=== PATIENT | male | born 1985 | race African-American/Black ===

== ENCOUNTER 2017-08-31 22:48 | Emergency (ER) | payer SELFPAY ==
[~2017-08-31] VITALS: Ht 182.9 cm; Wt 81.8 kg
[2017-08-31 23:43] VITALS: BP 127/80
[2017-09-01] MEDS ORDERED: IPRATROPIUM BROM 0.5 MG/2.5ML INH SOL NEB ONE (00:15)
[2017-09-01] MEDS ORDERED: ALBUTEROL SULF 2.5 MG/0.5ML(0.5%) NEB SOLN NEB ONE (00:15)
[2017-09-01] MEDS ORDERED: cefTRIAXone SOD 1,000 MG VL IM ONE (00:30)
[2017-09-01] MEDS ORDERED: cefTRIAXone SOD 1,000 MG VL ONE (01:03)
== END 2017-09-01 01:41 | disposition home or self-care (01) ==
LOC: ER 22:48
DX: J18.9 Pneumonia, unspecified organism (principal)
CPT/HCPCS: 71020; 94640; 96372; 99284; J0696